=== PATIENT | female | born 1965 | race Caucasian/White ===

== ENCOUNTER 2017-01-22 06:34 | Inpatient (IN) | payer BC ==
[2017-01-21 16:05] VITALS: BMI 37.0
[2017-01-22 10:56] LABS: #Lymphocytes 1.8 thou/uL (1.20-3.40); #Monocytes 0.5 thou/uL (0.11-0.59); #Neutrophils 8.1 thou/uL (1.40-6.50); %Basophils 0.2 % (0.0-1.0); %Eosinophils 0.4 % (0.0-10.0); %Lymphocytes 17.1 % (21.0-51.0); %Monocytes 4.8 % (0.0-10.0); Mean Platelet Volume 6.5 fL (7.4-10.4); Red Blood Cell (RBC) Count 5.26 mill/uL (4.20-5.40); White Blood Cell (WBC) Count 10.5 thou/uL (4.8-10.8)
[2017-01-22 11:07] LABS: Anion Gap 17 mmol/L (10-20); BUN (Urea Nitrogen) 11 mg/dL (7.0-18.7); Calc. Creatinine Clearance 120 mL/min (70-130); Calcium 9.9 mg/dL (7.8-10.44); Carbon Dioxide 22 mmol/L (22-29); Chloride 99 mmol/L (98-107); Estimated GFR-MDRD 80
[2017-01-22] MEDS ORDERED: Clindamycin/D5W 900 mg/50 ml Premix Bag ONE (11:22)
[2017-01-22] MEDS ORDERED: Levofloxacin 500 mg/D5W 100 ml Premix Bag ONE (11:22)
[2017-01-22] MEDS ORDERED: Scopolamine 1.5 mg/72 hour Patch ONE (11:24)
[2017-01-22] MEDS ORDERED: Fentanyl 100 MCG/2 ML VIAL ONE ×5 (11:24→17:35)
[2017-01-22] MEDS ORDERED: Bacitracin Zinc Ointment 30 gm TUBE ONE (13:09)
[2017-01-22] MEDS ORDERED: Sodium Chloride 0.9% 10 ML ONE (13:51)
[2017-01-22] MEDS ORDERED: Midazolam HCl 2 mg/2 ml Vial ONE (14:04)
[2017-01-22] MEDS ORDERED: Promethazine HCl 25 MG/ML VIAL ONE (14:04)
[2017-01-22] MEDS ORDERED: Dexamethasone 20 MG/5 ML VIAL ONE (14:23)
[2017-01-22] MEDS ORDERED: PHENYLEPHRINE-NS 100 MCG/ML 10 ML SYRINGE ONE (14:23)
[2017-01-22] MEDS ORDERED: Glycopyrrolate 0.2 MG/ML 5 ML SYRINGE ONE (14:23)
[2017-01-22] MEDS ORDERED: Propofol 200 MG/20 ML VIAL ONE (14:23)
[2017-01-22] MEDS ORDERED: Lidocaine 1% PF 5 ML VIAL ONE (14:23)
[2017-01-22] MEDS ORDERED: Ondansetron HCl/PF 4 MG/2 ML Vial ONE (14:23)
[2017-01-22] MEDS ORDERED: ePHEDrine/0.9% NaCl/PF SYRINGE 50 mg/10 ml ONE (14:23)
[2017-01-22] MEDS ORDERED: Albumin 5% 500 ML ONE (15:15)
[2017-01-22] MEDS ORDERED: Norepinephrine 4 MG/4 ML VIAL ONE (15:15)
[2017-01-22] MEDS ORDERED: SUGAMMADEX SODIUM 200 MG/2 ML VIAL ONE (16:21)
[2017-01-22] MEDS ORDERED: Promethazine HCl 25 MG/ML VIAL SLOW IVP PRN (16:47)
[2017-01-22] MEDS ORDERED: Meperidine HCl/PF 25 MG/ML VIAL SLOW IVP PRN (16:47)
[2017-01-22] MEDS ORDERED: Morphine Sulfate 2 MG/ML SYRINGE SLOW IVP PRN ×2 (16:47→17:18)
[2017-01-22] MEDS ORDERED: Ondansetron HCl/PF 4 MG/2 ML Vial IVP PRN (16:47)
[2017-01-22] MEDS ORDERED: HYDROmorphone 2 MG/ML VIAL SLOW IVP PRN (16:47)
[2017-01-22] MEDS ORDERED: Acetaminophen 650 MG Suppository PR PRN (17:18)
[2017-01-22] MEDS ORDERED: HYDROcodone/Acetaminophen 7.5/325 mg Tablet PO PRN (17:18)
[2017-01-22] MEDS ORDERED: Acetaminophen 325 MG TAB PO PRN (17:18)
[2017-01-22] MEDS ORDERED: traMADol HCl 50 MG TAB PO PRN (18:54)
--- NOTE | 2017-01-22 19:38 | OP ---
DATE OF SERVICE: 01/22/2017 SURGEON: Venkat Friedman M.D. MERCHANDISE EXAMINER: Ousmane Sanz PA-C PROCEDURE: Anterior cervical diskectomy C4 through C6, interbody arthrodesis, intravertebral biomec hanical device, local morselized autograft, demineralized bone matrix, anterior titanium instrumenta tion C4-C6, posterior approach C4-C6 laminectomies, posterolateral arthrodesis C4-C6, demineralized bone matrix, local morselized autograft, lateral mass screw instrumentation C4-C6. PROCEDURE IN DETAIL: The patient was brought into the operating room, intubated. She was positione d supine with the head in modest extension on a gel-filled donut. An incision was made in the right precervical area and dissecting medial to the sternocleidomastoid muscle. We identified the anteri or cervical spine and our level was confirmed by x-ray. We debrided anterior osteophytes, placed di straction across the disc spaces, and using the operating microscope and microdissection techniques, completely decompressed the spinal cord from foramen to foramen beneath the level of the posterior longitudinal ligament. Next, the bony endplates were decorticated for the purpose of arthrodesis an d appropriately sized intravertebral biomechanical PEEK devices were brought into the field, filled with demineralized bone matrix and local morselized autograft, and tapped into place securely at C4- 5 and C5-6. Next, an anterior plate was brought in the field and secured to C4, C5, and C6 using tw o 14 mm screws at each level. The wound was then extensively irrigated, immaculate hemostasis was s ecured, and the wound was closed in anatomic layers. Patient was then fixed in the juanita well head pumper and rolled in the prone position on a separate tabl e on gel-filled chest rolls. The head was fixed in neutral position and a midline posterior cervica l incision was made exposing C4 through C6. Complete C6, complete C5 and inferior C4 laminectomies were performed, completely decompressing the spinal cord. Lateral mass screws were placed at right C4, right C5, right C6 connected by rods, secured by nuts. The wound was then extensively irrigated , immaculate hemostasis was secured. A combination of demineralized bone matrix and local morselize d autograft was laid over the laminar and posterolateral surfaces for the purpose of arthrodesis. V ancomycin powder was applied and the wound was closed in anatomic layers.
[2017-01-22] MEDS: HYDROcodone/Acetaminophen 7.5/325 mg Tablet PO PRN (20:42)
[2017-01-22] MEDS: Clindamycin/D5W 900 MG in Premix Bag 1 BAG IVPB SCH (20:43)
[2017-01-22] MEDS: Sodium Chloride 0.9% 1,000 ML IV SCH (20:44)
[2017-01-22] MEDS: tiZANidine HCl 4 MG TAB PO PRN (22:16)
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
[2017-01-23] MEDS: Ondansetron HCl/PF 4 MG/2 ML Vial IVP PRN (02:50)
[2017-01-23] MEDS: HYDROcodone/Acetaminophen 7.5/325 mg Tablet PO PRN ×2 (05:08→10:23)
[2017-01-23] MEDS: Clindamycin/D5W 900 MG in Premix Bag 1 BAG IVPB SCH (05:10)
[2017-01-23] MEDS: Cepastat Lozenges 1 LOZ PO PRN ×2 (05:50→20:53)
[2017-01-23] MEDS: Sodium Chloride 0.9% 1,000 ML IV SCH ×3 (06:01→20:41)
[2017-01-23] MEDS ORDERED: Promethazine HCl 12.5 MG SUPP PR PRN (06:58)
[2017-01-23] MEDS ORDERED: Promethazine HCl 25 MG/ML VIAL IM PRN (06:59)
[2017-01-23] MEDS ORDERED: diphenhydrAMINE HCl 50 MG/ML 1 ML VIAL IVP PRN (06:59)
[2017-01-23] MEDS ORDERED: Milk Of Magnesia 30 ML UDCUP PO PRN (07:16)
[2017-01-23] MEDS: diphenhydrAMINE HCl 25 MG CAP PO PRN ×2 (07:25→22:25)
[2017-01-23] MEDS: Multivit, Therapeutic 1 TAB PO SCH (10:01)
[2017-01-23] MEDS: tiZANidine HCl 4 MG TAB PO PRN (12:39)
--- NOTE | 2017-01-23 13:14 | PDOC.PN ---
- Subjective Encounter Start Date: 01/23/17 Encounter Start Time: 11:00 Patient seen and examined. No new complaints. No overnight events. Feels somewhat better. Undergoing therapy. No CP/SOB - Objective MAR Reviewed: Yes Vital Signs & Weight: Vital Signs (12 hours) Temp Pulse Resp BP Pulse Ox 01/23/17 11:00 97.9 F 77 18 104/69 99 01/23/17 07:30 98.1 F 87 18 119/78 100 01/23/17 04:10 98.7 F 101 H 20 118/77 100 01/23/17 01:37 108 H 127/81 Weight Weight 190 lb I&O: 01/22/17 01/23/17 01/24/17 06:59 06:59 06:59 Intake Total 1184 Balance 1184 Result Diagrams: 01/22/17 10:47 01/22/17 10:47 Phys Exam - Physical Examination Constitutional: NAD Respiratory: no wheezing, no rhonchi Cardiovascular: RRR, no rub Gastrointestinal: soft, non-tender, positive bowel sounds Psychiatric: A&O x 3 Dx/Plan (1) Depression Code(s): F32.9 - MAJOR DEPRESSIVE DISORDER, SINGLE EPISODE, UNSPECIFIED Status : Acute (2) CKD (chronic kidney disease) stage 2, GFR 60-89 ml/min Code(s): N18.2 - CHRONIC KIDNEY DISEASE, STAGE 2 (MILD) Status: Acute (3) Obesity (BMI 30-39.9) Code(s): E66.9 - OBESITY, UNSPECIFIED Status: Chronic (4) Hyponatremia Code(s): E87.1 - HYPO-OSMOLALITY AND HYPONATREMIA Status: Acute Comment: mild - Plan cont current plan of care, plan discussed w/ family, PT/OT, DVT proph w/SCDs * Cont Citalopram * Pain controlled * Cont therapy * Will follow Review of Systems - Review of Systems Constitutional: negative: Fever, Chills, Sweats, Weakness, Malaise, Other Cardiovascular: negative: Chest Pain, Palpitations, Orthopnea, Paroxysmal Noc. Dyspnea, Edema, Light Headedness, Other Gastrointestinal: negative: Nausea, Vomiting, Abdominal Pain, Diarrhea, Constipation, Melena, Hematochezia, Other Genitourinary: negative: Dysuria, Frequency, Incontinence, Hematuria, Retention , Other Neurological: negative: Weakness, Numbness, Incoordination, Change in Speech, Confusion, Seizures, Other - Medications/Allergies Allergies/Adverse Reactions: Allergies Allergy/AdvReac Type Severity Reaction Status Date / Time No Known Allergies Allergy Verified 01/21/17 16:04 Medications: Current Medications Acetaminophen (Tylenol) 650 mg PO Q4H PRN PRN Reason: Headache/Fever or Pain(1-3) Last Admin: 01/23/17 02:47 Dose: 650 mg Acetaminophen (Tylenol) 650 mg [place] Q4H PRN PRN Reason: Headache/Fever or Pain(1-3) Hydrocodone Bitart/Acetaminophen ([place] 7.5/325) 1 tab PO Q4H PRN PRN Reason: Pain (1-3) Hydrocodone Bitart/Acetaminophen ([place] 7.5/325) 2 tab PO Q4H PRN PRN Reason: PAIN (4-6) Last Admin: 01/23/17 10:23 Dose: 2 tab Cholecalciferol (Vitamin D3) 2,000 units PO DAILY [facility] Last Admin: 01/23/17 10:02 Dose: 2,000 units Citalopram Hydrobromide (Celexa) 40 mg PO DAILY [facility] Last Admin: 01/23/17 10:02 Dose: 40 mg Diphenhydramine HCl (Benadryl) 25 mg PO Q6H PRN PRN Reason: Itching & Insomnia Last Admin: 01/23/17 07:25 Dose: 25 mg Diphenhydramine HCl (Benadryl) 25 mg IVP Q6H PRN PRN Reason: Itching & Insomnia Sodium Chloride (Normal Saline 0.9%) 1,000 mls @ 75 mls/hr IV .[id number] [facility] Last Admin: 01/23/17 10:03 Dose: 1,000 mls Magnesium Hydroxide (Milk Of Magnesium) 30 ml PO DAILYPRN PRN PRN Reason: Constipation Morphine Sulfate (Morphine Sulfate) 4 mg SLOW IVP Q1H PRN PRN Reason: Severe Breakthrough Pain Last Admin: 01/22/17 19:31 Dose: 4 mg Morphine Sulfate (Morphine Sulfate) 2 mg SLOW IVP Q1H PRN PRN Reason: Moderate Breakthrough Pain Multivitamins (Theragran) 1 tab PO DAILY [facility] Last Admin: 01/23/17 10:01 Dose: 1 tab Ondansetron HCl (Zofran) 4 mg IVP Q6H PRN PRN Reason: Nausea/Vomiting Last Admin: 01/23/17 02:50 Dose: 4 mg Promethazine HCl (Phenergan) 12.5 mg PO Q4H PRN PRN Reason: Nausea Last Admin: 01/23/17 12:38 Dose: 12.5 mg Promethazine HCl (Phenergan Suppository) 12.5 mg [place] Q4H PRN PRN Reason: Nausea Promethazine HCl (Phenergan) 12.5 mg IM Q4H PRN PRN Reason: Nausea Sodium Chloride (Flush - Normal Saline) 10 ml IVF PRN PRN PRN Reason: Saline Flush Throat Lozenges (Cepastat Lozenges) 1 connie PO Q1H PRN PRN Reason: SORE THROAT Last Admin: 01/23/17 05:50 Dose: 1 connie Tizanidine HCl (Zanaflex) 4 mg PO Q6H PRN PRN Reason: MUSCLE SPASM Last Admin: 01/23/17 12:39 Dose: 4 mg Tramadol HCl (Ultram) 50 mg PO ONE PRN PRN Reason: Moderate Pain (4-6) Stop: 01/23/17 18:55 Last Admin: 01/23/17 06:52 Dose: 50 mg
[2017-01-24] MEDS: HYDROcodone/Acetaminophen 7.5/325 mg Tablet PO PRN ×2 (02:13→09:24)
[2017-01-24] MEDS: Multivit, Therapeutic 1 TAB PO SCH (09:30)
[2017-01-24] MEDS: Sodium Chloride 0.9% 1,000 ML IV SCH (09:30)
[2017-01-24] MEDS: tiZANidine HCl 4 MG TAB PO PRN (11:30)
--- NOTE | 2017-01-24 19:33 | PDOC.PN ---
- Subjective Encounter Start Date: 01/24/17 Encounter Start Time: 08:15 Patient seen and examined. No new complaints. No overnight events. Feels better. Pain controlled. - Objective MAR Reviewed: Yes Vital Signs & Weight: Vital Signs (12 hours) Temp Pulse Resp BP Pulse Ox 01/24/17 16:00 98.5 F 73 18 116/78 98 01/24/17 11:58 98.2 F 72 20 115/75 96 01/24/17 08:00 98.2 F 82 16 138/81 93 L Weight Weight 190 lb I&O: 01/23/17 01/24/17 01/25/17 06:59 06:59 06:59 Intake Total 1184 1537 Output Total 500 Balance 1184 1037 Result Diagrams: 01/22/17 10:47 01/22/17 10:47 Phys Exam - Physical Examination Constitutional: NAD Respiratory: no wheezing, no rhonchi Cardiovascular: RRR, no rub Gastrointestinal: soft, non-tender, positive bowel sounds Musculoskeletal: no edema Neurological: moves all 4 limbs Dx/Plan (1) Depression Code(s): F32.9 - MAJOR DEPRESSIVE DISORDER, SINGLE EPISODE, UNSPECIFIED Status : Chronic (2) CKD (chronic kidney disease) stage 2, GFR 60-89 ml/min Code(s): N18.2 - CHRONIC KIDNEY DISEASE, STAGE 2 (MILD) Status: Chronic (3) Obesity (BMI 30-39.9) Code(s): E66.9 - OBESITY, UNSPECIFIED Status: Chronic (4) Hyponatremia Code(s): E87.1 - HYPO-OSMOLALITY AND HYPONATREMIA Status: Acute Comment: mild - Plan cont current plan of care, PT/OT, incentive spirometry, out of bed/ambulate, DVT proph w/SCDs * Cont current meds as below * Will follow. Review of Systems - Review of Systems Constitutional: negative: Fever, Chills, Sweats, Weakness, Malaise, Other Respiratory: negative: Cough, Dry, Shortness of Breath, Hemoptysis, SOB with Excertion, Pleuritic Pain, Sputum, Wheezing Cardiovascular: negative: Chest Pain, Palpitations, Orthopnea, Paroxysmal Noc. Dyspnea, Edema, Light Headedness, Other Gastrointestinal: negative: Nausea, Vomiting, Abdominal Pain, Diarrhea, Constipation, Melena, Hematochezia, Other - Medications/Allergies Allergies/Adverse Reactions: Allergies Allergy/AdvReac Type Severity Reaction Status Date / Time No Known Allergies Allergy Verified 01/21/17 16:04 Medications: Current Medications Acetaminophen (Tylenol) 650 mg PO Q4H PRN PRN Reason: Headache/Fever or Pain(1-3) Last Admin: 01/23/17 02:47 Dose: 650 mg Acetaminophen (Tylenol) 650 mg [place] Q4H PRN PRN Reason: Headache/Fever or Pain(1-3) Hydrocodone Bitart/Acetaminophen ([place] 7.5/325) 1 tab PO Q4H PRN PRN Reason: Pain (1-3) Hydrocodone Bitart/Acetaminophen ([place] 7.5/325) 2 tab PO Q4H PRN PRN Reason: PAIN (4-6) Last Admin: 01/24/17 09:24 Dose: 2 tab Cholecalciferol (Vitamin D3) 2,000 units PO DAILY [facility] Last Admin: 01/24/17 09:30 Dose: 2,000 units Citalopram Hydrobromide (Celexa) 40 mg PO DAILY [facility] Last Admin: 01/24/17 09:30 Dose: 40 mg Diphenhydramine HCl (Benadryl) 25 mg PO Q6H PRN PRN Reason: Itching & Insomnia Last Admin: 01/23/17 22:25 Dose: 25 mg Diphenhydramine HCl (Benadryl) 25 mg IVP Q6H PRN PRN Reason: Itching & Insomnia Sodium Chloride (Normal Saline 0.9%) 1,000 mls @ 75 mls/hr IV .[id number] [facility] Last Admin: 01/24/17 09:30 Dose: Not Given Magnesium Hydroxide (Milk Of Magnesium) 30 ml PO DAILYPRN PRN PRN Reason: Constipation Morphine Sulfate (Morphine Sulfate) 4 mg SLOW IVP Q1H PRN PRN Reason: Severe Breakthrough Pain Last Admin: 01/22/17 19:31 Dose: 4 mg Morphine Sulfate (Morphine Sulfate) 2 mg SLOW IVP Q1H PRN PRN Reason: Moderate Breakthrough Pain Multivitamins (Theragran) 1 tab PO DAILY [facility] Last Admin: 01/24/17 09:30 Dose: 1 tab Ondansetron HCl (Zofran) 4 mg IVP Q6H PRN PRN Reason: Nausea/Vomiting Last Admin: 01/23/17 02:50 Dose: 4 mg Promethazine HCl (Phenergan) 12.5 mg PO Q4H PRN PRN Reason: Nausea Last Admin: 01/23/17 12:38 Dose: 12.5 mg Promethazine HCl (Phenergan Suppository) 12.5 mg [place] Q4H PRN PRN Reason: Nausea Promethazine HCl (Phenergan) 12.5 mg IM Q4H PRN PRN Reason: Nausea Sodium Chloride (Flush - Normal Saline) 10 ml IVF PRN PRN PRN Reason: Saline Flush Throat Lozenges (Cepastat Lozenges) 1 connie PO Q1H PRN PRN Reason: SORE THROAT Last Admin: 01/23/17 20:53 Dose: 1 connie Tizanidine HCl (Zanaflex) 4 mg PO Q6H PRN PRN Reason: MUSCLE SPASM Last Admin: 01/24/17 11:30 Dose: 4 mg
[2017-01-24] MEDS: Cepastat Lozenges 1 LOZ PO PRN (22:30)
[2017-01-25] MEDS: Sodium Chloride 0.9% 1,000 ML IV SCH ×2 (00:25→11:07)
[2017-01-25] MEDS: Multivit, Therapeutic 1 TAB PO SCH (08:08)
[2017-01-25] MEDS: Ondansetron HCl/PF 4 MG/2 ML Vial IVP PRN ×2 (08:08→16:09)
--- NOTE | 2017-01-25 08:08 | PDOC.PN ---
- Subjective Encounter Start Date: 01/25/17 Encounter Start Time: 08:06 Patient seen and examined. No new complaints. No overnight events. No BM - Objective MAR Reviewed: Yes Vital Signs & Weight: Vital Signs (12 hours) Temp Pulse Resp BP Pulse Ox 01/25/17 04:00 98.5 F 82 19 144/88 H 100 01/25/17 00:00 99.1 F 79 20 122/77 100 Weight Weight 190 lb I&O: 01/24/17 01/25/17 01/26/17 06:59 06:59 06:59 Intake Total 1537 700 Output Total 500 Balance 1037 700 Result Diagrams: 01/22/17 10:47 01/22/17 10:47 Phys Exam - Physical Examination Constitutional: NAD Respiratory: no wheezing, no rhonchi Cardiovascular: RRR, no rub Gastrointestinal: soft, non-tender, positive bowel sounds Musculoskeletal: no edema Neurological: non-focal, moves all 4 limbs Psychiatric: A&O x 3 Dx/Plan (1) Depression Code(s): F32.9 - MAJOR DEPRESSIVE DISORDER, SINGLE EPISODE, UNSPECIFIED Status : Chronic Comment: on Citalopram (2) CKD (chronic kidney disease) stage 2, GFR 60-89 ml/min Code(s): N18.2 - CHRONIC KIDNEY DISEASE, STAGE 2 (MILD) Status: Chronic (3) Obesity (BMI 30-39.9) Code(s): E66.9 - OBESITY, UNSPECIFIED Status: Chronic (4) Hyponatremia Code(s): E87.1 - HYPO-OSMOLALITY AND HYPONATREMIA Status: Acute Comment: mild - Plan cont current plan of care, DVT proph w/SCDs * AM labs * Cont current meds as below * Cont therapy * Add Miralax and Sen-S * Will follow Review of Systems - Review of Systems Respiratory: negative: Cough, Dry, Shortness of Breath, Hemoptysis, SOB with Excertion, Pleuritic Pain, Sputum, Wheezing Cardiovascular: negative: Chest Pain, Palpitations, Orthopnea, Paroxysmal Noc. Dyspnea, Edema, Light Headedness, Other Gastrointestinal: negative: Nausea, Vomiting, Abdominal Pain, Diarrhea, Constipation, Melena, Hematochezia, Other - Medications/Allergies Allergies/Adverse Reactions: Allergies Allergy/AdvReac Type Severity Reaction Status Date / Time No Known Allergies Allergy Verified 01/21/17 16:04 Medications: Current Medications Acetaminophen (Tylenol) 650 mg PO Q4H PRN PRN Reason: Headache/Fever or Pain(1-3) Last Admin: 01/23/17 02:47 Dose: 650 mg Acetaminophen (Tylenol) 650 mg [place] Q4H PRN PRN Reason: Headache/Fever or Pain(1-3) Hydrocodone Bitart/Acetaminophen ([place] 7.5/325) 1 tab PO Q4H PRN PRN Reason: Pain (1-3) Hydrocodone Bitart/Acetaminophen ([place] 7.5/325) 2 tab PO Q4H PRN PRN Reason: PAIN (4-6) Last Admin: 01/24/17 09:24 Dose: 2 tab Cholecalciferol (Vitamin D3) 2,000 units PO DAILY [facility] Last Admin: 01/24/17 09:30 Dose: 2,000 units Citalopram Hydrobromide (Celexa) 40 mg PO DAILY [facility] Last Admin: 01/24/17 09:30 Dose: 40 mg Diphenhydramine HCl (Benadryl) 25 mg PO Q6H PRN PRN Reason: Itching & Insomnia Last Admin: 01/23/17 22:25 Dose: 25 mg Diphenhydramine HCl (Benadryl) 25 mg IVP Q6H PRN PRN Reason: Itching & Insomnia Sodium Chloride (Normal Saline 0.9%) 1,000 mls @ 75 mls/hr IV .[id number] [facility] Last Admin: 01/25/17 00:25 Dose: Not Given Magnesium Hydroxide (Milk Of Magnesium) 30 ml PO DAILYPRN PRN PRN Reason: Constipation Morphine Sulfate (Morphine Sulfate) 4 mg SLOW IVP Q1H PRN PRN Reason: Severe Breakthrough Pain Last Admin: 01/22/17 19:31 Dose: 4 mg Morphine Sulfate (Morphine Sulfate) 2 mg SLOW IVP Q1H PRN PRN Reason: Moderate Breakthrough Pain Multivitamins (Theragran) 1 tab PO DAILY [facility] Last Admin: 01/24/17 09:30 Dose: 1 tab Ondansetron HCl (Zofran) 4 mg IVP Q6H PRN PRN Reason: Nausea/Vomiting Last Admin: 01/23/17 02:50 Dose: 4 mg Polyethylene Glycol (Miralax) 17 gm PO DAILY [facility] Promethazine HCl (Phenergan) 12.5 mg PO Q4H PRN PRN Reason: Nausea Last Admin: 01/23/17 12:38 Dose: 12.5 mg Promethazine HCl (Phenergan Suppository) 12.5 mg [place] Q4H PRN PRN Reason: Nausea Promethazine HCl (Phenergan) 12.5 mg IM Q4H PRN PRN Reason: Nausea Senna/Docusate Sodium (Senokot S) 1 tab PO BID [facility] Sodium Chloride (Flush - Normal Saline) 10 ml IVF PRN PRN PRN Reason: Saline Flush Throat Lozenges (Cepastat Lozenges) 1 connie PO Q1H PRN PRN Reason: SORE THROAT Last Admin: 01/24/17 22:30 Dose: 1 connie Tizanidine HCl (Zanaflex) 4 mg PO Q6H PRN PRN Reason: MUSCLE SPASM Last Admin: 01/24/17 11:30 Dose: 4 mg
[2017-01-25] MEDS: Cepastat Lozenges 1 LOZ PO PRN ×2 (08:09→10:15)
[2017-01-25] MEDS: Senokot S 8.6-50 MG TAB PO SCH ×2 (10:11→21:47)
[2017-01-25] MEDS: Polyethylene Glycol 3350 17 GM Packet PO SCH (10:11)
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
--- NOTE | 2017-01-25 12:20 | PRG ---
DATE OF SERVICE: 01/25/2017 SUBJECTIVE: Ms. Torre is a 51-year-old female that I saw in her room this morning. She is status post ACDF and posterior decompression. There were no acute events overnight. This morning, she com plains of a little bit of nausea in which she will be given a dose of Zofran 4. Currently, we are a waiting on case management to set up transfer to [place]. Choice letter has been signed and refer ral has been placed. Overnight, her vital signs have been stable and she was in no acute distress t his morning. There are no new neurologic deficits on exam. If there are any further questions, ple ase feel free to contact Neurosurgery.
--- NOTE | 2017-01-25 12:53 | ULT ---
HISTORY: Immobilization status post surgery. Bilateral swelling of the lower extremities. The patient is fisher ving muscle spasms. TECHNIQUE: Multiple longitudinal and transverse images of the right and left lower extremity venous system are obtained using a Multi-Hertz linear array transducer. Real-time, color-flow, and spectral wave-form Doppler analysis is used to evaluate the right and left lower extremity venous systems. FINDINGS: The common femoral, superficial femoral, femoral profunda, popliteal, posterior tibial, post trifurc ation, and greater saphenous veins are patent bilaterally. No evidence of acute or old clot seen. IMPRESSION: No evidence of acute or old right or left lower extremity deep venous thrombosis. POS: SHAHEEN
[2017-01-26] MEDS: Sodium Chloride 0.9% 1,000 ML IV SCH ×2 (01:53→16:10)
[2017-01-26 06:15] LABS: Anion Gap 15 mmol/L (10-20); BUN (Urea Nitrogen) 8 mg/dL (7.0-18.7); BUN/Creatinine Ratio 13.33; Calc. Creatinine Clearance 154 mL/min (70-130); Calcium 9.5 mg/dL (7.8-10.44); Carbon Dioxide 22 mmol/L (22-29); Chloride 101 mmol/L (98-107); Estimated GFR-MDRD Greater than 90; Magnesium 1.9 mg/dL (1.6-2.6)
--- NOTE | 2017-01-26 08:33 | PRG ---
DATE OF SERVICE: 01/26/2017 SUBJECTIVE: I saw Ms. Torre in the hospital room this morning. She is awaiting rehabilitation placement. She has a bit of sore throat and some abdominal discomfort. She was put on Metamucil for bowel regimen. She requests some Cepacol lozenges. I do not notice much change in her neurological examination since yesterday. Ultrasound of the lower extremities was negative for DVT. If a bed opens up in the rehabilitation facility today, she can be transferred. Otherwise, we anticipated tomorrow or early in the weekend. TIERRA
[2017-01-26] MEDS: Multivit, Therapeutic 1 TAB PO SCH (08:59)
[2017-01-26] MEDS: Polyethylene Glycol 3350 17 GM Packet PO SCH ×2 (08:59→21:35)
[2017-01-26] MEDS: Senokot S 8.6-50 MG TAB PO SCH ×2 (08:59→21:35)
[2017-01-26] MEDS ORDERED: Bisacodyl 10 MG SUPP PR PRN (09:50)
--- NOTE | 2017-01-26 09:51 | PRG ---
DATE OF SERVICE: 01/26/2017 SUBJECTIVE: Ms. Torre is a 51-year-old female who I saw in her room this morning. There have been no acute events overnight. She is status post from ACDF and posterior decompression. Her potassiu m this morning is 5.2. Her sodium is 133. She had a venogram that was done yesterday which was neg ative for DVT in bilateral lower extremities. We are currently awaiting to hear back from inpatient rehabilitation specifically [facility] in [place]. We will continue to have her work with physical therapy today and when she is ready to be discharged to inpatient rehabilita tion, we can move forward with the assistance of a plan. If you have any further questions, please feel free to contact Neurosurgery.
--- NOTE | 2017-01-26 09:51 | PDOC.PN ---
- Subjective Encounter Start Date: 01/26/17 Encounter Start Time: 07:40 -: old records requested/rev pt still has no BM, pain is controlled Patient seen and examined. No overnight events - Objective MAR Reviewed: Yes Vital Signs & Weight: Vital Signs (12 hours) Temp Pulse Resp BP Pulse Ox 01/26/17 08:20 98.1 F 62 14 145/92 H 99 01/26/17 04:00 98.1 F 72 16 152/58 H 100 01/26/17 00:27 98.1 F 79 16 138/86 98 Weight Weight 190 lb I&O: 01/25/17 01/26/17 01/27/17 06:59 06:59 06:59 Intake Total 700 675 Balance 700 675 Result Diagrams: 01/22/17 10:47 01/26/17 05:32 Radiology Reviewed by me: Yes (us negative for dvt) Phys Exam - Physical Examination Constitutional: NAD HEENT: PERRLA, moist MMs, sclera anicteric Neck: no JVD, supple Respiratory: no wheezing, no rales, no rhonchi Cardiovascular: RRR, no significant murmur, no rub Gastrointestinal: soft, non-tender, no distention, positive bowel sounds Musculoskeletal: no edema, pulses present Neurological: moves all 4 limbs Lymphatic: no nodes Psychiatric: normal affect, A&O x 3 Skin: no rash, normal turgor Dx/Plan (1) Hyponatremia Code(s): E87.1 - HYPO-OSMOLALITY AND HYPONATREMIA Status: Acute Comment: mild (2) S/P cervical discectomy Code(s): Z98.890 - OTHER SPECIFIED POSTPROCEDURAL STATES Status: Acute (3) CKD (chronic kidney disease) stage 2, GFR 60-89 ml/min Code(s): N18.2 - CHRONIC KIDNEY DISEASE, STAGE 2 (MILD) Status: Chronic (4) Depression Code(s): F32.9 - MAJOR DEPRESSIVE DISORDER, SINGLE EPISODE, UNSPECIFIED Status : Chronic Comment: on Citalopram (5) Obesity (BMI 30-39.9) Code(s): E66.9 - OBESITY, UNSPECIFIED Status: Chronic (6) Constipation Code(s): K59.00 - CONSTIPATION, UNSPECIFIED Status: Acute - Plan cont current plan of care, PT/OT, social worker palliative care * will change miralax bid * add colace * continue PT * will need rehab, pt has not done well with PT yet. Review of Systems - Review of Systems Constitutional: Weakness. negative: Fever, Chills, Sweats, Malaise, Other Eyes: negative: Pain, Vision Change, Conjunctivae Inflammation, Eyelid Inflammation, Redness, Other ENT: negative: Ear Pain, Ear Discharge, Nose Pain, Nose Discharge, Nose Congestion, Mouth Pain, Mouth Swelling, Throat Pain, Throat Swelling, Other Respiratory: negative: Cough, Dry, Shortness of Breath, Hemoptysis, SOB with Excertion, Pleuritic Pain, Sputum, Wheezing Cardiovascular: negative: Chest Pain, Palpitations, Orthopnea, Paroxysmal Noc. Dyspnea, Edema, Light Headedness, Other Gastrointestinal: Constipation. negative: Nausea, Vomiting, Abdominal Pain, Diarrhea, Melena, Hematochezia, Other Genitourinary: negative: Dysuria, Frequency, Incontinence, Hematuria, Retention , Other Musculoskeletal: negative: Neck Pain, Shoulder Pain, Arm Pain, Back Pain, Hand Pain, Leg Pain, Foot Pain, Other - Medications/Allergies Allergies/Adverse Reactions: Allergies Allergy/AdvReac Type Severity Reaction Status Date / Time No Known Allergies Allergy Verified 01/21/17 16:04 Medications: Current Medications Acetaminophen (Tylenol) 650 mg PO Q4H PRN PRN Reason: Headache/Fever or Pain(1-3) Last Admin: 01/23/17 02:47 Dose: 650 mg Acetaminophen (Tylenol) 650 mg [place] Q4H PRN PRN Reason: Headache/Fever or Pain(1-3) Hydrocodone Bitart/Acetaminophen ([place] 7.5/325) 1 tab PO Q4H PRN PRN Reason: Pain (1-3) Hydrocodone Bitart/Acetaminophen ([place] 7.5/325) 2 tab PO Q4H PRN PRN Reason: PAIN (4-6) Last Admin: 01/24/17 09:24 Dose: 2 tab Cholecalciferol (Vitamin D3) 2,000 units PO DAILY [facility] Last Admin: 01/26/17 08:58 Dose: 2,000 units Citalopram Hydrobromide (Celexa) 40 mg PO DAILY [facility] Last Admin: 01/26/17 08:59 Dose: 40 mg Diphenhydramine HCl (Benadryl) 25 mg PO Q6H PRN PRN Reason: Itching & Insomnia Last Admin: 01/23/17 22:25 Dose: 25 mg Diphenhydramine HCl (Benadryl) 25 mg IVP Q6H PRN PRN Reason: Itching & Insomnia Sodium Chloride (Normal Saline 0.9%) 1,000 mls @ 75 mls/hr IV .[id number] [facility] Last Admin: 01/26/17 01:53 Dose: Not Given Magnesium Hydroxide (Milk Of Magnesium) 30 ml PO DAILYPRN PRN PRN Reason: Constipation Morphine Sulfate (Morphine Sulfate) 4 mg SLOW IVP Q1H PRN PRN Reason: Severe Breakthrough Pain Last Admin: 01/22/17 19:31 Dose: 4 mg Morphine Sulfate (Morphine Sulfate) 2 mg SLOW IVP Q1H PRN PRN Reason: Moderate Breakthrough Pain Multivitamins (Theragran) 1 tab PO DAILY [facility] Last Admin: 01/26/17 08:59 Dose: 1 tab Ondansetron HCl (Zofran) 4 mg IVP Q6H PRN PRN Reason: Nausea/Vomiting Last Admin: 01/25/17 16:09 Dose: 4 mg Polyethylene Glycol (Miralax) 17 gm PO DAILY [facility] Last Admin: 01/26/17 08:59 Dose: 17 gm Promethazine HCl (Phenergan) 12.5 mg PO Q4H PRN PRN Reason: Nausea Last Admin: 01/23/17 12:38 Dose: 12.5 mg Promethazine HCl (Phenergan Suppository) 12.5 mg [place] Q4H PRN PRN Reason: Nausea Promethazine HCl (Phenergan) 12.5 mg IM Q4H PRN PRN Reason: Nausea Senna/Docusate Sodium (Senokot S) 1 tab PO BID [facility] Last Admin: 01/26/17 08:59 Dose: 1 tab Sodium Chloride (Flush - Normal Saline) 10 ml IVF PRN PRN PRN Reason: Saline Flush Throat Lozenges (Cepastat Lozenges) 1 connie PO Q1H PRN PRN Reason: SORE THROAT Last Admin: 01/25/17 10:15 Dose: 1 connie Tizanidine HCl (Zanaflex) 4 mg PO Q6H PRN PRN Reason: MUSCLE SPASM Last Admin: 01/24/17 11:30 Dose: 4 mg
[2017-01-26] MEDS: Docusate 100 MG CAP PO SCH (21:34)
[2017-01-26] MEDS: Cepastat Lozenges 1 LOZ PO PRN (21:36)
[2017-01-27] MEDS: Sodium Chloride 0.9% 1,000 ML IV SCH ×2 (07:41→20:17)
[2017-01-27] MEDS: Multivit, Therapeutic 1 TAB PO SCH (10:00)
[2017-01-27] MEDS: Polyethylene Glycol 3350 17 GM Packet PO SCH ×2 (10:01→20:17)
[2017-01-27] MEDS: Docusate 100 MG CAP PO SCH ×2 (10:01→20:17)
[2017-01-27] MEDS: Senokot S 8.6-50 MG TAB PO SCH ×2 (10:01→20:17)
--- NOTE | 2017-01-27 10:51 | PDOC.PN ---
- Subjective Encounter Start Date: 01/27/17 Encounter Start Time: 07:40 she had good BM, Patient seen and examined. No new complaints. No overnight events - Objective MAR Reviewed: Yes Vital Signs & Weight: Vital Signs (12 hours) Temp Pulse Resp BP Pulse Ox 01/27/17 08:09 98 F 61 22 H 140/89 100 01/27/17 04:00 98.1 F 76 16 146/87 H 97 01/27/17 00:00 98.1 F 81 16 136/88 97 Weight Weight 190 lb I&O: 01/26/17 01/27/17 01/28/17 06:59 06:59 06:59 Intake Total 675 Balance 675 Result Diagrams: 01/22/17 10:47 01/26/17 05:32 Phys Exam - Physical Examination Constitutional: NAD HEENT: PERRLA, moist MMs, sclera anicteric Neck: no JVD, supple Respiratory: no wheezing, no rales, no rhonchi Cardiovascular: RRR, no significant murmur, no rub Gastrointestinal: soft, non-tender, no distention, positive bowel sounds Musculoskeletal: no edema, pulses present Neurological: non-focal, normal sensation Psychiatric: normal affect, A&O x 3 Skin: no rash, normal turgor Dx/Plan (1) Hyponatremia Code(s): E87.1 - HYPO-OSMOLALITY AND HYPONATREMIA Status: Acute Comment: mild (2) S/P cervical discectomy Code(s): Z98.890 - OTHER SPECIFIED POSTPROCEDURAL STATES Status: Acute (3) CKD (chronic kidney disease) stage 2, GFR 60-89 ml/min Code(s): N18.2 - CHRONIC KIDNEY DISEASE, STAGE 2 (MILD) Status: Chronic (4) Depression Code(s): F32.9 - MAJOR DEPRESSIVE DISORDER, SINGLE EPISODE, UNSPECIFIED Status : Chronic Comment: on Citalopram (5) Obesity (BMI 30-39.9) Code(s): E66.9 - OBESITY, UNSPECIFIED Status: Chronic (6) Constipation Code(s): K59.00 - CONSTIPATION, UNSPECIFIED Status: Resolved - Plan cont current plan of care, PT/OT, pediatric social worker * medically stable with current treatment * medication reviewed as below * symptomatic treatment. * await rehab/snu placement. Review of Systems - Review of Systems ENT: negative: Ear Pain, Ear Discharge, Nose Pain, Nose Discharge, Nose Congestion, Mouth Pain, Mouth Swelling, Throat Pain, Throat Swelling, Other Respiratory: negative: Cough, Dry, Shortness of Breath, Hemoptysis, SOB with Excertion, Pleuritic Pain, Sputum, Wheezing Cardiovascular: negative: Chest Pain, Palpitations, Orthopnea, Paroxysmal Noc. Dyspnea, Edema, Light Headedness, Other Gastrointestinal: negative: Nausea, Vomiting, Abdominal Pain, Diarrhea, Constipation, Melena, Hematochezia, Other Genitourinary: negative: Dysuria, Frequency, Incontinence, Hematuria, Retention , Other Musculoskeletal: negative: Neck Pain, Shoulder Pain, Arm Pain, Back Pain, Hand Pain, Leg Pain, Foot Pain, Other - Medications/Allergies Allergies/Adverse Reactions: Allergies Allergy/AdvReac Type Severity Reaction Status Date / Time No Known Allergies Allergy Verified 01/21/17 16:04 Medications: Current Medications Acetaminophen (Tylenol) 650 mg PO Q4H PRN PRN Reason: Headache/Fever or Pain(1-3) Last Admin: 01/23/17 02:47 Dose: 650 mg Acetaminophen (Tylenol) 650 mg [place] Q4H PRN PRN Reason: Headache/Fever or Pain(1-3) Hydrocodone Bitart/Acetaminophen ([place] 7.5/325) 1 tab PO Q4H PRN PRN Reason: Pain (1-3) Hydrocodone Bitart/Acetaminophen ([place] 7.5/325) 2 tab PO Q4H PRN PRN Reason: PAIN (4-6) Last Admin: 01/24/17 09:24 Dose: 2 tab Bisacodyl (Dulcolax) 10 mg [place] Q8H PRN PRN Reason: Constipation Cholecalciferol (Vitamin D3) 2,000 units PO DAILY [facility] Last Admin: 01/27/17 10:00 Dose: 2,000 units Citalopram Hydrobromide (Celexa) 40 mg PO DAILY [facility] Last Admin: 01/27/17 10:00 Dose: 40 mg Diphenhydramine HCl (Benadryl) 25 mg PO Q6H PRN PRN Reason: Itching & Insomnia Last Admin: 01/23/17 22:25 Dose: 25 mg Diphenhydramine HCl (Benadryl) 25 mg IVP Q6H PRN PRN Reason: Itching & Insomnia Docusate Sodium (Colace) 100 mg PO BID [facility] Last Admin: 01/27/17 10:01 Dose: Not Given Sodium Chloride (Normal Saline 0.9%) 1,000 mls @ 75 mls/hr IV .[id number] [facility] Last Admin: 01/27/17 07:41 Dose: Not Given Magnesium Hydroxide (Milk Of Magnesium) 30 ml PO DAILYPRN PRN PRN Reason: Constipation Morphine Sulfate (Morphine Sulfate) 4 mg SLOW IVP Q1H PRN PRN Reason: Severe Breakthrough Pain Last Admin: 01/22/17 19:31 Dose: 4 mg Morphine Sulfate (Morphine Sulfate) 2 mg SLOW IVP Q1H PRN PRN Reason: Moderate Breakthrough Pain Multivitamins (Theragran) 1 tab PO DAILY [facility] Last Admin: 01/27/17 10:00 Dose: 1 tab Ondansetron HCl (Zofran) 4 mg IVP Q6H PRN PRN Reason: Nausea/Vomiting Last Admin: 01/25/17 16:09 Dose: 4 mg Polyethylene Glycol (Miralax) 17 gm PO BID [facility] Last Admin: 01/27/17 10:01 Dose: Not Given Promethazine HCl (Phenergan) 12.5 mg PO Q4H PRN PRN Reason: Nausea Last Admin: 01/23/17 12:38 Dose: 12.5 mg Promethazine HCl (Phenergan Suppository) 12.5 mg [place] Q4H PRN PRN Reason: Nausea Promethazine HCl (Phenergan) 12.5 mg IM Q4H PRN PRN Reason: Nausea Senna/Docusate Sodium (Senokot S) 1 tab PO BID [facility] Last Admin: 01/27/17 10:01 Dose: Not Given Sodium Chloride (Flush - Normal Saline) 10 ml IVF PRN PRN PRN Reason: Saline Flush Throat Lozenges (Cepastat Lozenges) 1 connie PO Q1H PRN PRN Reason: SORE THROAT Last Admin: 01/26/17 21:36 Dose: 1 connie Tizanidine HCl (Zanaflex) 4 mg PO Q6H PRN PRN Reason: MUSCLE SPASM Last Admin: 01/24/17 11:30 Dose: 4 mg
[2017-01-27] MEDS: HYDROcodone/Acetaminophen 7.5/325 mg Tablet PO PRN (20:18)
[2017-01-27] MEDS: diphenhydrAMINE HCl 25 MG CAP PO PRN (23:28)
[2017-01-28] MEDS: Sodium Chloride 0.9% 1,000 ML IV SCH ×2 (02:17→20:35)
[2017-01-28] MEDS: HYDROcodone/Acetaminophen 7.5/325 mg Tablet PO PRN ×2 (06:18→18:54)
[2017-01-28] MEDS: Senokot S 8.6-50 MG TAB PO SCH ×3 (09:21→20:32)
[2017-01-28] MEDS: Docusate 100 MG CAP PO SCH ×3 (09:22→20:33)
[2017-01-28] MEDS: Polyethylene Glycol 3350 17 GM Packet PO SCH ×3 (09:22→20:33)
[2017-01-28] MEDS: Multivit, Therapeutic 1 TAB PO SCH (09:22)
[2017-01-28] MEDS: diphenhydrAMINE HCl 25 MG CAP PO PRN (14:32)
--- NOTE | 2017-01-28 15:33 | PDOC.PN ---
- Subjective Encounter Start Date: 01/28/17 Encounter Start Time: 09:00 Patient seen and examined. No new complaints. No overnight events - Objective MAR Reviewed: Yes Vital Signs & Weight: Vital Signs (12 hours) Temp Pulse Resp BP Pulse Ox 01/28/17 12:00 98.2 F 96 20 129/88 100 01/28/17 08:00 97.8 F 68 16 154/104 H 98 01/28/17 04:00 97.9 F 85 18 141/95 H 96 Weight Weight 190 lb I&O: 01/27/17 01/28/17 01/29/17 06:59 06:59 06:59 Intake Total 750 Balance 750 Result Diagrams: 01/22/17 10:47 01/26/17 05:32 Phys Exam - Physical Examination Constitutional: NAD HEENT: PERRLA, moist MMs, sclera anicteric Neck: no JVD, supple Respiratory: no wheezing, no rales, no rhonchi Cardiovascular: RRR, no significant murmur, no rub Gastrointestinal: soft, non-tender, no distention, positive bowel sounds Musculoskeletal: no edema, pulses present Neurological: non-focal, normal sensation Lymphatic: no nodes Psychiatric: normal affect Skin: no rash, normal turgor Dx/Plan (1) Hyponatremia Code(s): E87.1 - HYPO-OSMOLALITY AND HYPONATREMIA Status: Acute Comment: mild (2) S/P cervical discectomy Code(s): Z98.890 - OTHER SPECIFIED POSTPROCEDURAL STATES Status: Acute (3) CKD (chronic kidney disease) stage 2, GFR 60-89 ml/min Code(s): N18.2 - CHRONIC KIDNEY DISEASE, STAGE 2 (MILD) Status: Chronic (4) Depression Code(s): F32.9 - MAJOR DEPRESSIVE DISORDER, SINGLE EPISODE, UNSPECIFIED Status : Chronic Comment: on Citalopram (5) Obesity (BMI 30-39.9) Code(s): E66.9 - OBESITY, UNSPECIFIED Status: Chronic (6) Constipation Code(s): K59.00 - CONSTIPATION, UNSPECIFIED Status: Resolved - Plan cont current plan of care, PT/OT, dialysis social worker * medically stable * pain controlled * medication reviewed as below * symptomatic treatment. * await rehab placement, if not rehab then she will need SNU. Review of Systems - Review of Systems ENT: negative: Ear Pain, Ear Discharge, Nose Pain, Nose Discharge, Nose Congestion, Mouth Pain, Mouth Swelling, Throat Pain, Throat Swelling, Other Respiratory: negative: Cough, Dry, Shortness of Breath, Hemoptysis, SOB with Excertion, Pleuritic Pain, Sputum, Wheezing Cardiovascular: negative: Chest Pain, Palpitations, Orthopnea, Paroxysmal Noc. Dyspnea, Edema, Light Headedness, Other Gastrointestinal: negative: Nausea, Vomiting, Abdominal Pain, Diarrhea, Constipation, Melena, Hematochezia, Other Genitourinary: negative: Dysuria, Frequency, Incontinence, Hematuria, Retention , Other Musculoskeletal: negative: Neck Pain, Shoulder Pain, Arm Pain, Back Pain, Hand Pain, Leg Pain, Foot Pain, Other - Medications/Allergies Allergies/Adverse Reactions: Allergies Allergy/AdvReac Type Severity Reaction Status Date / Time No Known Allergies Allergy Verified 01/21/17 16:04 Medications: Current Medications Acetaminophen (Tylenol) 650 mg PO Q4H PRN PRN Reason: Headache/Fever or Pain(1-3) Last Admin: 01/23/17 02:47 Dose: 650 mg Acetaminophen (Tylenol) 650 mg CO Q4H PRN PRN Reason: Headache/Fever or Pain(1-3) Hydrocodone Bitart/Acetaminophen ([place] 7.5/325) 1 tab PO Q4H PRN PRN Reason: Pain (1-3) Hydrocodone Bitart/Acetaminophen ([place] 7.5/325) 2 tab PO Q4H PRN PRN Reason: PAIN (4-6) Last Admin: 01/28/17 06:18 Dose: 2 tab Bisacodyl (Dulcolax) 10 mg CO Q8H PRN PRN Reason: Constipation Cholecalciferol (Vitamin D3) 2,000 units PO DAILY [facility] Last Admin: 01/28/17 09:21 Dose: 2,000 units Citalopram Hydrobromide (Celexa) 40 mg PO DAILY [facility] Last Admin: 01/28/17 09:21 Dose: 40 mg Diphenhydramine HCl (Benadryl) 25 mg PO Q6H PRN PRN Reason: Itching & Insomnia Last Admin: 01/28/17 14:32 Dose: 25 mg Diphenhydramine HCl (Benadryl) 25 mg IVP Q6H PRN PRN Reason: Itching & Insomnia Docusate Sodium (Colace) 100 mg PO BID [facility] Last Admin: 01/28/17 14:27 Dose: Not Given Sodium Chloride (Normal Saline 0.9%) 1,000 mls @ 75 mls/hr IV .[id number] [facility] Last Admin: 01/28/17 02:17 Dose: Not Given Magnesium Hydroxide (Milk Of Magnesium) 30 ml PO DAILYPRN PRN PRN Reason: Constipation Morphine Sulfate (Morphine Sulfate) 4 mg SLOW IVP Q1H PRN PRN Reason: Severe Breakthrough Pain Last Admin: 01/22/17 19:31 Dose: 4 mg Morphine Sulfate (Morphine Sulfate) 2 mg SLOW IVP Q1H PRN PRN Reason: Moderate Breakthrough Pain Multivitamins (Theragran) 1 tab PO DAILY [facility] Last Admin: 01/28/17 09:22 Dose: 1 tab Ondansetron HCl (Zofran) 4 mg IVP Q6H PRN PRN Reason: Nausea/Vomiting Last Admin: 01/25/17 16:09 Dose: 4 mg Polyethylene Glycol (Miralax) 17 gm PO BID [facility] Last Admin: 01/28/17 09:25 Dose: Not Given Promethazine HCl (Phenergan) 12.5 mg PO Q4H PRN PRN Reason: Nausea Last Admin: 01/23/17 12:38 Dose: 12.5 mg Promethazine HCl (Phenergan Suppository) 12.5 mg CO Q4H PRN PRN Reason: Nausea Promethazine HCl (Phenergan) 12.5 mg IM Q4H PRN PRN Reason: Nausea Senna/Docusate Sodium (Senokot S) 1 tab PO BID [facility] Last Admin: 01/28/17 14:27 Dose: Not Given Sodium Chloride (Flush - Normal Saline) 10 ml IVF PRN PRN PRN Reason: Saline Flush Throat Lozenges (Cepastat Lozenges) 1 connie PO Q1H PRN PRN Reason: SORE THROAT Last Admin: 01/26/17 21:36 Dose: 1 connie Tizanidine HCl (Zanaflex) 4 mg PO Q6H PRN PRN Reason: MUSCLE SPASM Last Admin: 01/24/17 11:30 Dose: 4 mg
[2017-01-28] MEDS: tiZANidine HCl 4 MG TAB PO PRN (18:54)
[2017-01-28] MEDS: Cepastat Lozenges 1 LOZ PO PRN (19:01)
[2017-01-29] MEDS: HYDROcodone/Acetaminophen 7.5/325 mg Tablet PO PRN (02:59)
[2017-01-29] MEDS: tiZANidine HCl 4 MG TAB PO PRN ×2 (02:59→16:38)
[2017-01-29] MEDS: Docusate 100 MG CAP PO SCH ×2 (09:41→19:47)
[2017-01-29] MEDS: Multivit, Therapeutic 1 TAB PO SCH (09:41)
[2017-01-29] MEDS: Senokot S 8.6-50 MG TAB PO SCH ×2 (09:42→19:47)
[2017-01-29] MEDS: Sodium Chloride 0.9% 1,000 ML IV SCH (09:42)
[2017-01-29] MEDS: Polyethylene Glycol 3350 17 GM Packet PO SCH ×2 (09:42→19:47)
--- NOTE | 2017-01-29 14:26 | PDOC.PN ---
- Subjective Encounter Start Date: 01/29/17 Encounter Start Time: 10:15 Subjective: no sob, is moving her 3 extremities better now -: no trouble swallowing - Objective MAR Reviewed: Yes Vital Signs & Weight: Vital Signs (12 hours) Temp Pulse Resp BP Pulse Ox 01/29/17 12:00 98.2 F 70 16 139/97 H 100 01/29/17 08:00 97.8 F 75 20 145/93 H 97 01/29/17 04:47 99.8 F H 89 16 131/65 96 Weight Weight 190 lb I&O: 01/28/17 01/29/17 01/30/17 06:59 06:59 06:59 Intake Total 750 600 720 Balance 750 600 720 Result Diagrams: 01/22/17 10:47 01/26/17 05:32 Phys Exam - Physical Examination HEENT: PERRLA, sclera anicteric Neck: no nodes, no JVD Respiratory: no wheezing, no rales Cardiovascular: RRR, no significant murmur Gastrointestinal: soft, non-tender, positive bowel sounds Musculoskeletal: no edema, pulses present Neurological: non-focal chronic right UE plegia Psychiatric: A&O x 3 Dx/Plan (1) Quadriparesis Code(s): G82.50 - QUADRIPLEGIA, UNSPECIFIED Status: Chronic (2) Cervical myelopathy Code(s): G95.9 - DISEASE OF SPINAL CORD, UNSPECIFIED Status: Chronic Comment : s/p ACDF 01/22/2017 (3) Obesity (BMI 30-39.9) Code(s): E66.9 - OBESITY, UNSPECIFIED Status: Chronic (4) Mood disorder Status: Chronic - Plan awaiting placement -: to continue working with PT/OT and mobilize -: morphine and tizanidine prn for pain -: continue current meds * . Review of Systems - Medications/Allergies Allergies/Adverse Reactions: Allergies Allergy/AdvReac Type Severity Reaction Status Date / Time cephalexin [From Keflex] Allergy Verified 01/29/17 02:25 Medications: Current Medications Acetaminophen (Tylenol) 650 mg PO Q4H PRN PRN Reason: Headache/Fever or Pain(1-3) Last Admin: 01/23/17 02:47 Dose: 650 mg Acetaminophen (Tylenol) 650 mg [place] Q4H PRN PRN Reason: Headache/Fever or Pain(1-3) Hydrocodone Bitart/Acetaminophen ([place] 7.5/325) 1 tab PO Q4H PRN PRN Reason: Pain (1-3) Hydrocodone Bitart/Acetaminophen ([place] 7.5/325) 2 tab PO Q4H PRN PRN Reason: PAIN (4-6) Last Admin: 01/29/17 02:59 Dose: 2 tab Bisacodyl (Dulcolax) 10 mg [place] Q8H PRN PRN Reason: Constipation Cholecalciferol (Vitamin D3) 2,000 units PO DAILY [facility] Last Admin: 01/29/17 09:41 Dose: 2,000 units Citalopram Hydrobromide (Celexa) 40 mg PO DAILY [facility] Last Admin: 01/29/17 09:41 Dose: 40 mg Diphenhydramine HCl (Benadryl) 25 mg PO Q6H PRN PRN Reason: Itching & Insomnia Last Admin: 01/28/17 14:32 Dose: 25 mg Diphenhydramine HCl (Benadryl) 25 mg IVP Q6H PRN PRN Reason: Itching & Insomnia Docusate Sodium (Colace) 100 mg PO BID [facility] Last Admin: 01/29/17 09:41 Dose: 100 mg Sodium Chloride (Normal Saline 0.9%) 1,000 mls @ 75 mls/hr IV .[id number] [facility] Last Admin: 01/29/17 09:42 Dose: Not Given Magnesium Hydroxide (Milk Of Magnesium) 30 ml PO DAILYPRN PRN PRN Reason: Constipation Morphine Sulfate (Morphine Sulfate) 4 mg SLOW IVP Q1H PRN PRN Reason: Severe Breakthrough Pain Last Admin: 01/22/17 19:31 Dose: 4 mg Morphine Sulfate (Morphine Sulfate) 2 mg SLOW IVP Q1H PRN PRN Reason: Moderate Breakthrough Pain Multivitamins (Theragran) 1 tab PO DAILY [facility] Last Admin: 01/29/17 09:41 Dose: 1 tab Ondansetron HCl (Zofran) 4 mg IVP Q6H PRN PRN Reason: Nausea/Vomiting Last Admin: 01/25/17 16:09 Dose: 4 mg Polyethylene Glycol (Miralax) 17 gm PO BID [facility] Last Admin: 01/29/17 09:42 Dose: 17 gm Promethazine HCl (Phenergan) 12.5 mg PO Q4H PRN PRN Reason: Nausea Last Admin: 01/23/17 12:38 Dose: 12.5 mg Promethazine HCl (Phenergan Suppository) 12.5 mg [place] Q4H PRN PRN Reason: Nausea Promethazine HCl (Phenergan) 12.5 mg IM Q4H PRN PRN Reason: Nausea Senna/Docusate Sodium (Senokot S) 1 tab PO BID [facility] Last Admin: 01/29/17 09:42 Dose: Not Given Sodium Chloride (Flush - Normal Saline) 10 ml IVF PRN PRN PRN Reason: Saline Flush Throat Lozenges (Cepastat Lozenges) 1 connie PO Q1H PRN PRN Reason: SORE THROAT Last Admin: 01/28/17 19:01 Dose: 1 connie Tizanidine HCl (Zanaflex) 4 mg PO Q6H PRN PRN Reason: MUSCLE SPASM Last Admin: 01/29/17 02:59 Dose: 4 mg
[2017-01-29 20:04] VITALS: BP 129/86; TEMP 97.7
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
== END 2017-01-29 19:50 | DRG 453 ==
LOC: SURG A 08:48 → SJJU 18:32
PROVIDERS: ADMIT Neurological Surgery; ATTEND Neurological Surgery
PROC: 0RT30ZZ Resection of Cervical Vertebral Disc, Open Approach (ICD-10-PCS; principal; 2017-01-22)
PROC: 0RG20A0 Fusion of 2 or more Cervical Vertebral Joints with Interbody Fusion Device, Anterior Approach, Anterior Column, Open Approach (ICD-10-PCS; 2017-01-22)
PROC: 0RG20A1 (ICD-10-PCS; 2017-01-22)
PROC: 00NW0ZZ Release Cervical Spinal Cord, Open Approach (ICD-10-PCS; 2017-01-22)
DX: M48.02 Spinal stenosis, cervical region (principal); G82.50 Quadriplegia, unspecified; M47.12 Other spondylosis with myelopathy, cervical region; E87.1 Hypo-osmolality and hyponatremia; Z87.820 Personal history of traumatic brain injury; Z88.1 Allergy status to other antibiotic agents; E66.9 Obesity, unspecified; Z68.37 Body mass index [BMI] 37.0-37.9, adult; N18.2 Chronic kidney disease, stage 2 (mild); F32.9 Major depressive disorder, single episode, unspecified; K59.00 Constipation, unspecified
CPT/HCPCS: 36415; 76001; 80048; 80069; 83735; 85025; 93970; A4216; C1713; C1768; G8981-GP-CL; G8982-GP-CK; G8987-GO-CN; G8988-GO-CL; J1100; J1170; J1200; J1956; J2001; J2250; J2270; J2405; J2550; J2704; J3010; J3370; J3490; P9045